=== PATIENT | male | born 1940 | race Caucasian/White ===

== ENCOUNTER 2024-02-14 10:31 | Emergency (ER) | payer MEDICARE, OTHER, SELFPAY ==
[2024-02-14 10:53] VITALS: BP 190/100; PULSE 60; RESP 14; TEMP 36.7; O2SAT 99; BMI 25.1
[2024-02-14 11:47] VITALS: BP 197/100; PULSE 58; RESP 20; TEMP 36.5; O2SAT 100
--- NOTE | 2024-02-14 11:48 | ED_ITS ---
HPI - Epistaxis <Davis Michel PA-C - Last Filed: 02/14/24 11:55> General Chief complaint: Nasal Problem Stated complaint: severe nose bleed Time Seen by Provider: 02/14/24 10:56 Source: patient Mode of arrival: Ambulatory History of Present Illness HPI Narrative: 83-year-old male with past medical history hypertension, hypercholesterolemia presents to the ED with 2 days of epistaxis. Patient states that he had to nosebleeds over the last 24 hours, which he described as heavy nosebleeds. Patient was able to control the nosebleeds with pinching his nostrils, Afrin nose spray. Patient does endorse a history of allergies, has had a prior history of epistaxis for which he wants needed to be cauterized. His last nosebleed was at 5:30 a.m. this morning. In the ED, patient does not have a nosebleed. Patient denies any other symptoms including fever, chills, chest pain, shortness of breath, nausea, vomiting, lightheadedness, dizziness, syncope. Review of Systems <Davis Michel PA-C - Last Filed: 02/14/24 11:55> Constitutional Constitutional: Denies chills, Denies fatigue, Denies fever(s), Denies frequent falls, Denies lethargy and Denies weakness Eyes Eyes: Denies change in vision, Denies eye discharge, Denies irritation and Denies loss of vision ENT Ears, Nose, Mouth, and Throat: Denies change in voice, Denies dizziness, Reports epistaxis, Denies neck pain, Denies sore throat and Denies throat swelling Cardiovascular Cardiovascular: Denies chest pain, Denies irregular heart rhythm, Denies lightheadedness, Denies palpitations, Denies dyspnea, Denies dyspnea on exertion and Denies orthopnea Respiratory Respiratory: Denies cough, Denies dyspnea, Denies dyspnea on exertion and Denies wheezing Gastrointestinal Gastrointestinal: Denies abdominal pain, Denies change in bowel habits, Denies diarrhea, Denies nausea and Denies vomiting Musculoskeletal Musculoskeletal: Denies neck pain and Denies numbness Integumentary/Breasts Skin/Breast: Denies pruritus, Denies erythema, Denies rash and Denies wounds Neurologic Neurologic: Denies behavioral changes, Denies confusion, Denies dizziness, Den ies frequent falls, Denies loss of vision, Denies numbness and Denies weakness Psychiatric Psychiatric: Denies anxiety, Denies behavioral changes, Denies confusion, Denies depression, Denies homicidal ideation and Denies suicidal ideation Endocrine Endocrine: Denies fatigue, Denies flushing and Denies palpitations Hematologic/Lymphatic Hematologic/Lymphatic: Denies easy bruising Allergic/Immunologic Allergic/Immunologic: Denies urticaria, Denies throat swelling and Denies wheezing Patient History <Davis Michel PA-C - Last Filed: 02/14/24 11:55> Social History Smoking Status: Never smoker Smoking Status: Never smoker alcohol intake frequency: 0-2 drinks per day Substance Use Type: does not use Exam <Davis Michel PA-C - Last Filed: 02/14/24 11:55> Narrative Exam Narrative: Const General:?cooperative, healthy appearing and comfortable [facility] Head:?normal to inspection Ears:?hearing grossly normal bilaterally Nose:?external nose normal; no active epistaxis during exam; no septal hematom a; airway is patent Face and sinus:?normal facial exam and sinuses nontender Mouth:?oral mucosae normal; no signs of bleeding in the mouth Throat:?posterior oropharynx normal Eyes General:?appearance normal, both eyes and all related structures Neck Neck:?normal visual inspection and no lymphadenopathy noted Resp Effort & Inspection:?normal respiratory effort Auscultation:?clear to auscultation bilaterally Cardio Rate:?regular rate Rhythm:?regular rhythm Neuro General:?patient alert, patient awake and patient oriented x3 Initial Vital Signs Initial Vital Signs: Vital Signs Temperature 98.1 F 02/14/24 10:53 Pulse Rate 60 02/14/24 10:53 Respiratory Rate 14 02/14/24 10:53 Blood Pressure 190/100 H 02/14/24 10:53 Pulse Oximetry 99 02/14/24 10:53 Oxygen Delivery Method Room Air 02/14/24 10:53 <Ela Bolton DO - Last Filed: 02/14/24 19:48> Initial Vital Signs Initial Vital Signs: Vital Signs Temperature 98.1 F 02/14/24 10:53 Pulse Rate 60 02/14/24 10:53 Respiratory Rate 14 02/14/24 10:53 Blood Pressure 190/100 H 02/14/24 10:53 Pulse Oximetry 99 02/14/24 10:53 Oxygen Delivery Method Room Air 02/14/24 10:53 Course <Davis Michel PA-C - Last Filed: 02/14/24 11:55> Vital Signs Vital signs: Vital Signs - 8 hr 02/14/24 10:53 02/14/24 11:47 Temperature 98.1 F 97.7 F Pulse Rate 60 58 L Respiratory Rate 14 20 Blood Pressure 190/100 H 197/100 H Pulse Oximetry 99 100 Oxygen Delivery Method Room Air Room Air <Ela Kamila Bolton DO - Last Filed: 02/14/24 19:48> Vital Signs Vital signs: Vital Signs - 8 hr 02/14/24 10:53 02/14/24 11:47 Temperature 98.1 F 97.7 F Pulse Rate 60 58 L Respiratory Rate 14 20 Blood Pressure 190/100 H 197/100 H Pulse Oximetry 99 100 Oxygen Delivery Method Room Air Room Air MDM - Epistaxis <Davis Michel PA-C - Last Filed: 02/14/24 11:55> MDM Narrative Medical decision making narrative: 83-year-old male with past medical history hypertension, hypercholesterolemia presents to the ED with 2 days of epistaxis. Physical exam is reassuring with no active epistaxis, septal hematoma. Airway is patent, patient is breathing normally. Patient's blood pressure was elevated at 1 90/100. Patient does take nightly losartan and is compliant with his medications. Counseled patient on steps to take if his epistaxis were to recur. Discussed elevated blood pressure with patient. Recommend taking twice daily blood pressure readings, keeping a journal, following up with his PCP as soon as possible for further evaluation. Recommend follow-up with ENT as soon as possible. ED return precautions discussed with patient. Patient verbalized understanding. Medical records reviewed: Yes Discharge Plan Departure Patient Disposition: Home Clinical Impression: Epistaxis Instructions: DI for Nosebleed, How to Use Nose Drops Activity Restrictions/Additional Instructions: You were evaluated in the ED today for a nosebleed. It is reassuring that your nosebleed has been controlled and you are no longer bleeding. If your nose bleed were to recur, you may use Afrin in both nostrils, along with pressure to the bridge of the nose. As a preventative, you may use saline nose spray frequently, apply Vaseline in the nostrils, use a humidifier and drink lots of water. Please ensure to keep your blood pressure controlled and take the losartan as prescribed. Please follow-up with your PCP as soon as possible. Please also follow-up with ENT specialist Dr. Hair Burnette who can be reached at [phone]. Return to the ED if you have worsening symptoms, uncontrollable nosebleed, shortness of breath, chest pain. Stand Alone Forms: Patient Portal/API ED Sign-out <Ela Bolton DO - Last Filed: 02/14/24 19:48> Cosign ED Attending Cosblanco Attestation: I was immediately available in the department for consultation.
== END 2024-02-14 12:02 | disposition home or self-care (01) ==
PROVIDERS: Emergency Provider Student in an Organized Health Care Education/Training Program
DX: R04.0 Epistaxis (principal)
CPT/HCPCS: 99282

== ENCOUNTER 2024-02-16 10:17 | Emergency (ER) | payer MEDICARE, OTHER, SELFPAY ==
[2024-02-16] VITALS (7 sets, daily range): BP systolic 149–174; BP diastolic 79–92; PULSE 56–60; RESP 12–18; TEMP 36.1; O2SAT 98–99; BMI 25.1
--- NOTE | 2024-02-16 10:45 | ED_ITS ---
HPI - Epistaxis General Chief complaint: Nasal Problem Stated complaint: Nose bleeds Time Seen by Provider: 02/16/24 10:20 Source: patient Mode of arrival: Ambulatory History of Present Illness HPI Narrative: 83-year-old male presents for intermittent nosebleeds for several days. Seen here 02/13 for same. Bleeding controlled with Afrin. Patient states that he was tried to insert Afrin-soaked tissues into his nose but he continued to bleed and so he decided to present for evaluation. Patient is not currently bleeding. He states that he tried to call ENT but they do not have any appointments for several months. Related Data Allergies Allergy/AdvReac Type Severity Reaction Status Date / Time mold Allergy Verified 02/17/24 17:17 Review of Systems Review of Systems Narrative: Negative except as noted above Patient History Social History Smoking Status: Never smoker Smoking Status: Never smoker alcohol intake frequency: holidays/special occasions only Substance Use Type: does not use Exam Initial Vital Signs Initial Vital Signs: Vital Signs Pulse Rate 56 L 02/16/24 10:22 Blood Pressure 174/92 H 02/16/24 10:22 Pulse Oximetry 98 02/16/24 10:22 Const: Awake, alert, no acute distress, nontoxic appearing Nose: No active bleeding, septum normal, no obvious masses Skin: Warm, Dry, intact, no rashes Neuro: AO x3, CN II-XII grossly intact, moves all extremities Course Orders Ordered: ED Orders 02/16/24 10:55 CBC Auto Diff [Complete Blood Count AUTO DIFF] Stat CMP [Comprehensive Metabolic Panel] Stat PT [Prothrombin Time INR] Stat Vital Signs Vital signs: Vital Signs - 8 hr 02/16/24 10:24 Temperature 96.9 F L Pulse Rate 60 Respiratory Rate 18 Blood Pressure 158/86 H Pulse Oximetry 99 Oxygen Delivery Method Room Air MDM - Epistaxis Differential Diagnosis Differential diagnosis: Likely nasal bone fracture, anterior epistaxis and posterior epistaxis Lab Data 02/16/24 10:55 02/16/24 10:55 Labs: Lab Results 02/16/24 Range/Units 10:55 WBC 5.5 (4.5-11.0) X10^3/uL RBC 4.50 (4.5-5.9) X10^6/uL Hgb 13.6 (13.5-17.5) g/dL Hct 41.2 (41-53) % MCV 91.4 (80-100) fL MCH 30.2 (26-34) PG MCHC 33.1 (30-36) % RDW 13.2 (11.6-14.8) % Plt Count 144 L (150-400) X10^3/uL Neut % (Auto) 49.6 L (50-75) % Lymph % (Auto) 32.0 (25-40) % Bladen % (Auto) 12.7 (3-14) % Eos % (Auto) 4.6 H (2-4) % Baso % (Auto) 1.1 (0-2) % Neut # (Auto) 2700 (3321-0059) /uL Lymph # (Auto) 1800 (1558-0354) /uL Bladen # (Auto) 700 (0-900) /uL Eos # (Auto) 300 (0-450) /uL Baso # (Auto) 100 (0-100) /uL PT 12.7 H (9.4-12.5) SECONDS INR 1.1 (0.9-1.3) Sodium 137 (137-145) mmol/L Potassium 4.3 (3.4-5.1) mmol/L Chloride 102 (98-107) mmol/L Carbon Dioxide 33 H (22-32) mmol/L BUN 20 (9-20) mg/dL Creatinine 0.97 (0.66-1.25) mg/dL Estimated GFR > 60 (>60) mL/min BUN/Creatinine Ratio 20.6 (6-22) Glucose 95 (80-110) mg/dL Calcium 9.1 (8.4-10.2) mg/dL Total Bilirubin 1.1 (0.2-1.3) mg/dL AST 48 (17-59) IU/L ALT 55 H (<50) IU/L Alkaline Phosphatase 56 (38-126) U/L Total Protein 7.9 (6.3-8.2) g/dL Albumin 3.7 (3.5-5.0) g/dL Globulin 4.2 H (1.7-4.1) g/dL Albumin/Globulin Ratio 0.9 L (1.0-2.8) MDM Narrative Medical decision making narrative: Recurrent nosebleeds, however at this time patient has no active bleeding on my exam. Since this is a recurrent visit for bleeding we will order laboratory work to ensure that patient has normal platelets and normal coags. Laboratory work is reviewed, unremarkable. Patient was normal platelets, INR is within normal limits. I spoke with on-call ENT Dr. Cardozo, who recommended placement of a marble-sized cotton ball into the nares covered and Vaseline. Patient should follow up within 1 week at ENT clinic for further assessment. Patient has had absolutely no bleeding despite being in our emergency department for several hours. Discharged with in stable condition. Discharge Plan Departure Patient Disposition: Home Clinical Impression: Epistaxis Instructions: DI for Nosebleed Activity Restrictions/Additional Instructions: Per ENT: take a cotton ball, put bacitracin or vaseline on it, making it roughly the size of a marble, and insert it in the front of the nostril. Change every 24 hrs. Use for at least 1 week You can continue to use afrin as needed. Referrals: Hair Burnette MD [Physician] - Stand Alone Forms: Patient Portal/API
[2024-02-16 11:03] LABS: Add Manual Diff / Slide Review NO; Basophils Absolute Auto 100 /uL (0-100); Basophils Percent Auto 1.1 % (0-2); Eosinophils Absolute Auto 300 /uL (0-450); Eosinophils Percent Auto 4.6 % (2-4); Hematocrit 41.2 % (41-53); Hemoglobin 13.6 g/dL (13.5-17.5); Lymphocytes Absolute Auto 1800 /uL (1100-4500); Mean Corpuscular HGB Conc 33.1 % (30-36); Mean Corpuscular Hemoglobin 30.2 PG (26-34); Mean Corpuscular Volume 91.4 fL (80-100); Monocytes Absolute Auto 700 /uL (0-900); Monocytes Percent Auto 12.7 % (3-14); Neutrophils Absolute Auto 2700 /uL (1500-7000); Neutrophils Percent Auto 49.6 % (50-75); Platelet Count 144 X10^3/uL (150-400); Red Cell Distribution Width 13.2 % (11.6-14.8); White Blood Cell Count 5.5 X10^3/uL (4.5-11.0)
[2024-02-16 11:09] LABS: INR 1.1 (0.9-1.3); Prothrombin Time 12.7 SECONDS (9.4-12.5)
[2024-02-16 11:13] LABS: Alanine Aminotransferase 55 IU/L (<50); Albumin 3.7 g/dL (3.5-5.0); Albumin Globulin Ratio 0.9 (1.0-2.8); Alkaline Phosphatase 56 U/L (38-126); Aspartate Aminotransferase 48 IU/L (17-59); BUN Creatinine Ratio 20.6 (6-22); Bilirubin Total 1.1 mg/dL (0.2-1.3); Blood Urea Nitrogen 20 mg/dL (9-20); Calcium 9.1 mg/dL (8.4-10.2); Carbon Dioxide 33 mmol/L (22-32); Chloride 102 mmol/L (98-107); Estimated Glomerular Filt Rate > 60 mL/min (>60); Globulin 4.2 g/dL (1.7-4.1); Glucose 95 mg/dL (80-110); HEMOLYSIS < 15 (0-50); Potassium 4.3 mmol/L (3.4-5.1); Sodium 137 mmol/L (137-145); Total Protein 7.9 g/dL (6.3-8.2)
== END 2024-02-16 12:48 | disposition home or self-care (01) ==
PROVIDERS: Emergency Provider Emergency Medicine
DX: R04.0 Epistaxis (principal)
CPT/HCPCS: 30905; 36415; 80053; 85025; 85610; 99283

== ENCOUNTER 2024-02-17 17:05 | Emergency (ER) | payer MEDICARE, OTHER, SELFPAY ==
[2024-02-17] VITALS (9 sets, daily range): BP systolic 185–193; BP diastolic 80–93; PULSE 60–65; RESP 16; TEMP 36.4; O2SAT 98–99; BMI 25.1
--- NOTE | 2024-02-17 18:30 | ED.GENADULT ---
HPI - General Adult General Chief complaint: Nasal Problem Stated complaint: nose bleed Time Seen by Provider: 02/17/24 17:53 Source: patient and family Mode of arrival: Ambulatory History of Present Illness HPI narrative: Patient is an 83-year-old male. This is his 3rd visit in the past couple days for right-sided nosebleed. On all the prior visits he has been able to control the bleeding with Afrin and compression. He has declined a rhino rocket in prior visits. He has an appointment tomorrow morning with ENT. He comes in the emergency department stating that he is having bleeding from the right side of his nose. No respiratory distress. Not on blood thinners. No trauma. Related Data Allergies Allergy/AdvReac Type Severity Reaction Status Date / Time mold Allergy Verified 02/17/24 17:17 Review of Systems ENT Ears, Nose, Mouth, and Throat: Reports system reviewed and no additional complaints, except as documented Respiratory Respiratory: Reports system reviewed and no additional complaints, except as documented Hematologic/Lymphatic On Anticoagulants: No Patient History Social History Smoking Status: Never smoker Smoking Status: Never smoker alcohol intake frequency: holidays/special occasions only Substance Use Type: does not use Exam Initial Vital Signs Initial Vital Signs: Vital Signs Temperature 97.6 F 02/17/24 17:07 Pulse Rate 62 02/17/24 17:07 Respiratory Rate 16 02/17/24 17:07 Blood Pressure 193/93 H 02/17/24 17:07 Pulse Oximetry 98 02/17/24 17:07 Oxygen Delivery Method Room Air 02/17/24 17:07 HENNM Nose: septum normal and epistaxis (Right nares) Resp Effort & Inspection: normal respiratory effort Skin General: no rashes or lesions noted Neuro General: patient alert, patient awake and moves all extremities Course Vital Signs Vital signs: Vital Signs - 8 hr 02/17/24 17:07 02/17/24 17:14 02/17/24 17:30 Temperature 97.6 F Pulse Rate 62 62 65 Respiratory Rate 16 Blood Pressure 193/93 H Pulse Oximetry 98 98 98 Oxygen Delivery Method Room Air 02/17/24 18:00 02/17/24 18:29 02/17/24 18:47 Temperature Pulse Rate 61 64 Respiratory Rate Blood Pressure 186/93 H Pulse Oximetry 99 99 Oxygen Delivery Method 02/17/24 18:51 02/17/24 19:37 02/17/24 19:38 Temperature 97.5 F L Pulse Rate 60 Respiratory Rate 16 Blood Pressure 186/80 H Pulse Oximetry 99 98 Oxygen Delivery Method Room Air Room Air 02/17/24 19:38 Temperature Pulse Rate Respiratory Rate Blood Pressure 185/91 H Pulse Oximetry Oxygen Delivery Method Medical Decision Making MDM Narrative Medical decision making narrative: Patient once again declined rhino rocket. There was no anterior source identified on exam. It does appear that we were able to get the bleeding controlled once again with Afrin and compression. The plan will be to discharge home with instructions to keep his scheduled appointment tomorrow with ENT. He was given return precautions. He expressed understanding and agreement with the plan. Discharge Plan Departure Patient Disposition: Home Clinical Impression: Epistaxis Instructions: DI for Nosebleed Activity Restrictions/Additional Instructions: Recommend that you keep your scheduled appointment with the ENT providers tomorrow. If your nose starts to bleed again this evening I recommend doing the procedure that we discussed with the Afrin in the nasal clamps. Return to the emergency department for new symptoms. Referrals: Miscellaneous,Doctor, [Primary Care Provider] - Stand Alone Forms: Patient Portal/API
== END 2024-02-17 19:48 | disposition home or self-care (01) ==
PROVIDERS: Emergency Provider Emergency Medicine
DX: R04.0 Epistaxis (principal)

== ENCOUNTER 2024-02-17 20:01 | Emergency (ER) | payer MEDICARE, OTHER, SELFPAY ==
[2024-02-17 20:12] VITALS: BP 198/99; PULSE 64; RESP 16; TEMP 36.2; O2SAT 99; BMI 25.1
--- NOTE | 2024-02-17 20:25 | ED.GENADULT ---
HPI - General Adult General Chief complaint: Nasal Problem Stated complaint: nose bleed Time Seen by Provider: 02/17/24 20:19 Source: patient and family Mode of arrival: Ambulatory History of Present Illness HPI narrative: Patient is an 83-year-old male. Not on blood thinners. No trauma. So his 4th visit in the past week for right-sided epistaxis. I actually evaluated him here in the emergency department at the beginning of my shift. He has bleeding from the right side of his nose. During the last visit we were able to control it with Afrin and compression. He did not want any packing. He has an appointment scheduled tomorrow with ENT. He was instructed that if he started to bleed again that he needed to return to the emergency department. After being discharged he walked out to his car in the bleeding started again. He returns to the emergency department stating that he is now willing to have the nasal packing. Related Data Allergies Allergy/AdvReac Type Severity Reaction Status Date / Time mold Allergy Verified 02/17/24 17:17 Review of Systems Constitutional Constitutional: Reports system reviewed and no additional complaints, except as documented ENT Ears, Nose, Mouth, and Throat: Reports system reviewed and no additional complaints, except as documented Respiratory Respiratory: Reports system reviewed and no additional complaints, except as documented Integumentary/Breasts Skin/Breast: Reports system reviewed and no additional complaints, except as documented Hematologic/Lymphatic On Anticoagulants: No Patient History Social History Smoking Status: Never smoker Smoking Status: Never smoker alcohol intake frequency: holidays/special occasions only Substance Use Type: does not use Exam Initial Vital Signs Initial Vital Signs: Vital Signs Temperature 97.1 F L 02/17/24 20:12 Pulse Rate 64 02/17/24 20:12 Respiratory Rate 16 02/17/24 20:12 Blood Pressure 198/99 H 02/17/24 20:12 Pulse Oximetry 99 02/17/24 20:12 Oxygen Delivery Method Room Air 02/17/24 20:[address] [facility] Head: normal to inspection and normocephalic Nose: septum normal and epistaxis (Right nares) Face and sinus: normal facial exam Resp Effort & Inspection: normal respiratory effort Auscultation: clear to auscultation bilaterally Skin General: no rashes or lesions noted Neuro General: patient alert, patient awake and moves all extremities Procedures Epistaxis Control Nostril: right Nose Prepped With: oxymetazoline Direct Inspection: yes and unable to visualize Clots Removed by: blowing nose Cautery Used: none Device Inserted: other (Rhino rocket) Device Size: 55 Patient Tolerated Procedure: well Course Orders Ordered: Discontinued Medications Tranexamic Acid (Tranexamic Acid 1,000 Mg Vial) 1,000 mg TOP NOW ONE Stop: 02/17/24 20:20 Last Admin: 02/17/24 20:37 Dose: 1,000 mg Documented By: JJ Vital Signs Vital signs: Vital Signs - 8 hr 02/17/24 20:12 02/17/24 21:56 Temperature 97.1 F L Pulse Rate 64 59 L Respiratory Rate 16 19 Blood Pressure 198/99 H 197/99 H Pulse Oximetry 99 100 Oxygen Delivery Method Room Air Room Air Medical Decision Making MDM Narrative Medical decision making narrative: Patient is bleeding from his right nares. No anterior source is identified. Initially a 4.5 rhino rocket was placed after it had been soaked in TXA. Patient started to bleeding posteriorly down the back of his throat. No respiratory distress but did have to use a suction. The 4.5 rhino rocket was then exchanged for a 5.5. He still continues to have bleeding. I did discuss the case with Dr. Lopez on-call for ENT who recommended the patient be transferred to [facility] for evaluation. I discussed the case with Dr. Starks in the emergency department and [facility] who accepts the patient for transfer. Discussed the need for transfer with the patient. He is stable for transport by private vehicle. Patient and expressed understanding and agreement with plan. Discharge Plan Departure Patient Disposition: [facility] Clinical Impression: Epistaxis Referrals: Miscellaneous,DoctorMD [Primary Care Provider] -
[2024-02-17] MEDS: TRANEXAMIC ACID 1,000 MG VIAL 1000 MG TOP (20:37)
--- NOTE | 2024-02-17 21:24 | PC.NURSE ---
Patient called and said he still feels blood going down his throat. Patient used a whole box of kleenex to spit blood into. Dr. Burnett in room now. Dr. Burnett replaced previous rhino rocket that was 4.5cm to a 5.5 cm one. Patient has suction at bed and call light.
--- NOTE | 2024-02-17 21:33 | PC.NURSE ---
Checked on patient. Patient states the bleeding down his throat is slowing down.
[2024-02-17 21:56] VITALS: BP 197/99; PULSE 59; RESP 19; O2SAT 100
--- NOTE | 2024-02-17 21:58 | PC.NURSE ---
Patient still bleeding down his throat. Dr. Burnett notified, calling [facility].
== END 2024-02-17 22:24 | disposition short-term general hospital (02) ==
PROVIDERS: Emergency Provider Emergency Medicine
DX: R04.0 Epistaxis (principal)
CPT/HCPCS: 30901; 30903; 99281; 99283